=== PATIENT | male | born 1950 | race Caucasian/White ===

== ENCOUNTER → 2018-11-15 12:28 | Outpatient (CLI) | payer OTHER, SELFPAY ==
--- NOTE | 2018-11-15 | DI.MRI.S_ITS ---
PROCEDURE: MRFOOT LT WO CON INDICATIONS: INJURY OF LEFT FOOT TECHNIQUE: Noncontrast sagittal T1 spin echo and T2 fast spin echo with fat saturation, long-axis T1 spin echo and T2 fast spin echo with fat saturation, short-axis T1 spin echo and T2 fast spin echo with fat saturation through the forefoot. COMPARISON: None. FINDINGS: Image quality: Excellent. Bones and joints: No bone marrow contusions or metatarsal stress fractures. The sesamoid bones appear in expected positions, without internal edema. Mild osteoarthritic changes throughout forefoot joints are seen with joint space narrowing and subchondral sclerosis. No intraosseous lesions. Soft tissues: The visualized plantar foot muscles demonstrate normal signal and bulk. Visualized flexor and extensor tendons appear intact, without tenosynovitis. The distal insertions of the peroneus brevis and longus tendons appear intact. The principal Lisfranc ligament appears intact. No soft tissue ganglion cysts or bursal fluid collections. Sagittal images demonstrate signal abnormality and discontinuity involving lateral portion of second plantar plate, suggestive of partial thickness tear in this region. IMPRESSION: 1. Finding is suggestive of partial thickness tear involving lateral portion of second plantar plate. 2. Mild forefoot joint osteoarthritic changes. No marrow edema. No fracture or dislocation. Dictated by: Gregorio Lundberg M.D. on 11/15/2018 at 14:41 Approved by: Gregorio Lundberg M.D. on 11/15/2018 at 16:33
== END ==
PROVIDERS: PCP Family Medicine; Visit Provider Podiatrist
DX: S99.922A Unspecified injury of left foot, initial encounter (principal); M19.072 Primary osteoarthritis, left ankle and foot
CPT/HCPCS: 73718